=== PATIENT | female | born 1995 | race Caucasian/White ===

== ENCOUNTER 2018-08-26 03:03 | Inpatient (IN) | payer OTHER, MEDICAID ==
[2018-08-26 04:26] LABS: ADD MAN DIFF? NO
[2018-08-26] MEDS ORDERED: CARBOPROST 250 MCG INJ IM ×2 (04:30→20:30)
[2018-08-26] MEDS ORDERED: AMPICILLIN 2 GM/NS (PMX) 100 ML IV (04:30)
[2018-08-26] MEDS ORDERED: OXYTOCIN 30 UNITS/LR 500 ML IV ×2 (04:30→20:30)
[2018-08-26] MEDS ORDERED: MISOPROSTOL 200 MCG TAB PR ×2 (04:30→20:30)
[2018-08-26] MEDS ORDERED: BUTORPHANOL 2 MG INJ IV (04:30)
[2018-08-26] MEDS ORDERED: METHYLERGONOVINE 0.2 MG INJ IM ×2 (04:30→20:30)
[2018-08-26 04:32] LABS: ABNORMAL IP MESSAGE 1; BASOPHILS % 0.3 % (0.0-2.0); EOSINOPHILS % 0.3 % (0.0-7.0); HEMATOCRIT 39.9 % (37.0-47.0); HEMOGLOBIN 13.6 g/dl (12.0-16.0); LYMPHOCYTES # 1.2 10^3/ul (0.8-2.9); LYMPHOCYTES % 17.6 % (15.0-51.0); MEAN CORPUSCULAR HEMOGLOBIN 32.7 pg (29.0-33.0); MEAN CORPUSCULAR HGB CONC 34.1 g/dl (32.0-37.0); MEAN CORPUSCULAR VOLUME 95.9 fl (82.0-101.0); MEAN PLATELET VOLUME 13.4 fl (7.4-10.4); MONOCYTE # 0.5 10^3/ul (0.3-0.9); MONOCYTES % 6.5 % (0.0-11.0); NEUTROPHIL # 5.3 10^3/ul (1.6-7.5); PLATELET COUNT 124 10^3/UL (140-415); RED BLOOD COUNT 4.16 10^6/ul (4.20-5.40); RED CELL DISTRIBUTION WIDTH 12.6 % (11.5-14.5)
[2018-08-26 04:36] LABS: POSITIVE DIFF @See below
[2018-08-26 04:39] LABS: PROTIME 12.3 Sec (11.9-14.9)
[2018-08-26 04:40] LABS: PARTIAL THROMBOPLASTIN TIME 29.2 Sec (23.0-35.0)
[2018-08-26] MEDS: LACTATED RINGER'S 1,000 ML IV ×5 (04:43→16:32)
[2018-08-26 05:20] LABS: HEPATITIS B SURFACE ANTIGEN NEGATIVE (NEGATIVE)
[2018-08-26] MEDS ORDERED: AMPICILLIN 1 GM/NS (PMX) 50 ML IV (08:30)
[2018-08-26] MEDS ORDERED: FENTAnyl 2MCG/ML-ROPIV 0.2% 100 ML (11:34)
[2018-08-26] MEDS: OXYTOCIN 30 UNITS/LR 500 ML IV ×3 (14:31→18:28)
[2018-08-26] MEDS ORDERED: NALOXONE (0.4 MG/ML) INJ IV (16:30)
[2018-08-26] MEDS ORDERED: ONDANSETRON 4 MG INJ IV (16:30)
[2018-08-26] MEDS ORDERED: FENTAnyl 2MCG/ML-ROPIV 0.2% 100 ML BAG EPI (16:30)
[2018-08-26 16:37] LABS: RAPID PLASMA REAGIN NONREACTIVE (NR)
[2018-08-26] MEDS: LIDOCAINE 1% (MPF) 30 ML INJ INJ (18:28)
[2018-08-26] MEDS: MINERAL OIL LIGHT 10 ML VIAL TOP (18:43)
[2018-08-26] MEDS: ACETAMINOPHEN 500 MG TAB PO (18:46)
[2018-08-26] MEDS: IBUPROFEN 600 MG TAB PO (19:33)
[2018-08-26] MEDS ORDERED: HYDROCODONE/APAP (5/325) TAB PO (20:30)
[2018-08-26] MEDS ORDERED: ZOLPIDEM 5 MG TAB PO (20:30)
[2018-08-26] MEDS: KETOROLAC 30 MG INJ IV (20:30)
[2018-08-26] MEDS: MAGNESIUM HYDROXIDE 30ML CUP PO (21:57)
[2018-08-26] MEDS: BENZOCAINE 20% 56 ML SPRAY TOP (21:58)
[2018-08-26] MEDS: LANOLIN HPA 1 PKT TOP (21:58)
[2018-08-26] MEDS: WITCH HAZEL/GLYCERIN PAD PR (21:58)
[2018-08-26] MEDS: SENNA/DOCUSATE NA (8.6MG/50MG) TAB PO (21:58)
[2018-08-27] MEDS: CEPHALEXIN 500 MG CAP PO ×5 (00:23→23:58)
[2018-08-27] MEDS: LACTATED RINGER'S 1,000 ML IV* ×2 (00:23→06:16)
[2018-08-27] MEDS: IBUPROFEN 600 MG TAB PO ×5 (00:24→23:58)
[2018-08-27 06:47] LABS: ADD MAN DIFF? NO
[2018-08-27 06:51] LABS: BASOPHILS % 0.2 % (0.0-2.0); EOSINOPHILS % 0.1 % (0.0-7.0); HEMATOCRIT 30.5 % (37.0-47.0); HEMOGLOBIN 10.3 g/dl (12.0-16.0); LYMPHOCYTES # 1.4 10^3/ul (0.8-2.9); LYMPHOCYTES % 12.1 % (15.0-51.0); MEAN CORPUSCULAR HEMOGLOBIN 32.9 pg (29.0-33.0); MEAN CORPUSCULAR HGB CONC 33.8 g/dl (32.0-37.0); MEAN CORPUSCULAR VOLUME 97.4 fl (82.0-101.0); MEAN PLATELET VOLUME 12.9 fl (7.4-10.4); MONOCYTE # 0.8 10^3/ul (0.3-0.9); MONOCYTES % 6.5 % (0.0-11.0); NEUTROPHIL # 9.5 10^3/ul (1.6-7.5); NEUTROPHILS % 80.7 % (39.0-77.0); PLATELET COUNT 106 10^3/UL (140-415); RED BLOOD COUNT 3.13 10^6/ul (4.20-5.40)
[2018-08-27 06:51] LABS: WHITE BLOOD COUNT 11.8 10^3/ul (4.8-10.8)
[2018-08-27] MEDS: MAGNESIUM HYDROXIDE 30ML CUP PO ×2 (09:00→20:57)
[2018-08-27] MEDS: SENNA/DOCUSATE NA (8.6MG/50MG) TAB PO ×2 (09:26→20:57)
[2018-08-27] MEDS: DIBUCAINE 1% 30 GM OINT TOP (09:26)
[2018-08-27] MEDS: HYDROCODONE/APAP (5/325) TAB PO ×2 (12:35→18:09)
[2018-08-28] MEDS: CEPHALEXIN 500 MG CAP PO ×3 (05:32→18:31)
[2018-08-28] MEDS: IBUPROFEN 600 MG TAB PO ×3 (05:32→18:31)
[2018-08-28] MEDS: SENNA/DOCUSATE NA (8.6MG/50MG) TAB PO (09:09)
[2018-08-28] MEDS: MAGNESIUM HYDROXIDE 30ML CUP PO (09:09)
[2018-08-28] MEDS: MEASLES,MUMPS,RUBELLA VACCINE INJ SC* (09:11)
[2018-08-28] MEDS: DIPHTH/TET/ACEL PERTUSS (ADULT) 0.5 ML VIAL IM* (09:11)
[2018-08-28] MEDS: VARICELLA VACCINE LIVE/PF 1,350 UNIT/0.5 ML ML SC* (09:11)
[2018-08-28] MEDS: HYDROCODONE/APAP (5/325) TAB PO (15:56)
== END 2018-08-28 19:50 | disposition home or self-care (01) | DRG 807 ==
LOC: OBT 03:03 → L-D 03:03 → OBT 03:35 → L-D 03:35 → PP1 20:02
PROVIDERS: Obstetrics & Gynecology Gynecology
PROC: 10E0XZZ Delivery of Products of Conception, External Approach (ICD-10-PCS; principal; 2018-08-26)
PROC: 0W8NXZZ Division of Female Perineum, External Approach (ICD-10-PCS; 2018-08-26)
DX: O80 Encounter for full-term uncomplicated delivery (principal); Z37.0 Single live birth; Z3A.39 39 weeks gestation of pregnancy
CPT/HCPCS: 62322; 76815; 85025; 85610; 85730; 86592; 86850; 86900; 86901; 87340; 90716; 99464